=== PATIENT | male | born 1975 | race African-American/Black ===

== ENCOUNTER 2020-12-11 10:39 | Inpatient (IN) | payer MEDICAID, OTHER ==
[~2020-12-11] VITALS: Ht 167.6 cm; Wt 58.1 kg
[2020-12-11 12:01] LABS: CHLORIDE 102 mEq/L (98-107)
[2020-12-11 12:03] LABS: PROTHROMBIN TIME 10.5 sec (9.6-11.0)
[2020-12-11 12:26] LABS: BASOPHILS % 0.3 % (0.0-2.0); EOSINOPHILS % 1.4 % (0.0-5.0); HEMATOCRIT. 24.7 % (42.0-52.0); HEMOGLOBIN. 8.4 g/dL (14.0-18.0); LYMPHOCYTES % 11.2 % (20.0-50.0); MEAN CORPUSCULAR HEMOGLOBIN 32.1 pg (28.0-32.0); MEAN CORPUSCULAR VOLUME 93.8 fL (80.0-94.0); MEAN PLATELET VOLUME 7.9 fl (7.4-10.4); MONOCYTES % 5.8 % (2.0-8.0); NEUTROPHILS % 81.3 % (40.0-76.0); PLATELET 143 x1000/uL (130-400); RED BLOOD CELL COUNT 2.63 mill/uL (4.7-6.1); RED CELL DISTRIBUTION WIDTH 13.8 % (11.6-14.6)
[2020-12-11] MEDS ORDERED: VANCOMYCIN 1 G PREMIX 200 ML IV ONE (12:45)
[2020-12-11] MEDS ORDERED: PIPERACILLIN/TAZ 3.375G PREMIX 50 ML IV ONE (12:45)
[2020-12-11 16:32] VITALS: BP 152/103
[2020-12-11 16:54] VITALS: BP 152/103
[2020-12-11] MEDS ORDERED: DIPHENHYDRAMINE 50MG/ML VIAL IV PRN (17:00)
[2020-12-11] MEDS ORDERED: ACETAMINOPHEN 325MG TABLET PO PRN (17:00)
[2020-12-11] MEDS ORDERED: IPRATROPIUM/ALBUTEROL 0.5-3(2.5)MG/3ML NEB HHN PRN (17:00)
[2020-12-11] MEDS ORDERED: HYDR-4135 PO (18:55)
[2020-12-11] MEDS ORDERED: AMLO10TA80 PO (18:55)
[2020-12-11 20:00] VITALS: BP 154/104
[2020-12-11] MEDS ORDERED: FUROSEMIDE 40MG TABLET PO ONE (21:00)
[2020-12-11] MEDS ORDERED: EPOETIN ALFA-EPBX 4,000 UNIT/ML VIAL SUBCUT ONE (21:00)
[2020-12-11] MEDS: IRON SUCROSE COMPLEX 100 MG/5 ML ML IV SCH (21:23)
[2020-12-11] MEDS: PIPERACILLIN/TAZOBACTAM 3.375 G in DEXTROSE 5% WATER 50 ML IV SCH (21:23)
[2020-12-11] MEDS: HYDRALAZINE HCL 50MG TABLET PO SCH (21:24)
[2020-12-11] MEDS: CLONIDINE 0.1MG TABLET PO PRN (21:24)
[2020-12-11] MEDS: ZOLPIDEM TARTRATE 5MG TABLET PO PRN (21:24)
[2020-12-12] VITALS: BP 156/106
[2020-12-12 04:00] VITALS: BP 150/100
[2020-12-12] MEDS: CLONIDINE 0.1MG TABLET PO PRN ×2 (04:51→21:31)
[2020-12-12] MEDS: HYDRALAZINE HCL 50MG TABLET PO SCH ×3 (06:16→21:31)
[2020-12-12 08:00] VITALS: BP 162/92
[2020-12-12] MEDS ORDERED: LIDOCAINE HCL 1% 20ML VIAL (Pyxis) INJ ONE (08:24)
[2020-12-12 08:50] LABS: CLARITY URINE CLEAR (CLEAR); COLOR URINE YELLOW (YELLOW); KETONES URINE NEGATIVE (NEGATIVE); LEUKOCYTE ESTERASE URINE NEGATIVE (NEGATIVE); NITRITE URINE NEGATIVE (NEGATIVE); OCCULT BLOOD URINE TRACE (NEGATIVE); PH URINE 8.5 (4.5-8.0); PROTEIN URINE 3+ (NEGATIVE); SPECIFIC GRAVITY URINE 1.009 (1.005-1.030); UROBILINOGEN URINE 0.2 E.U./dL (0.2-1.0)
[2020-12-12] MEDS ORDERED: VANCOMYCIN 500 MG PREMIX 100 ML IV SCH (09:00)
[2020-12-12] MEDS: DOCUSATE SODIUM 100MG CAPSULE PO SCH ×2 (09:00→17:00)
[2020-12-12] MEDS: PIPERACILLIN/TAZOBACTAM 3.375 G in DEXTROSE 5% WATER 50 ML IV SCH ×2 (09:21→21:32)
[2020-12-12] MEDS: BENAZEPRIL 10MG TABLET PO SCH ×2 (09:22→17:22)
[2020-12-12] MEDS: CALCIUM ACETATE 667MG CAPSULE PO SCH ×3 (09:22→17:22)
[2020-12-12] MEDS: FUROSEMIDE 40MG TABLET PO SCH (09:22)
[2020-12-12] MEDS: SEVELAMER CARBONATE 800 MG TABLET PO SCH ×3 (09:24→17:22)
[2020-12-12 12:00] VITALS: BP 133/69
[2020-12-12] MEDS: ONDANSETRON HCL 4MG/2ML INJ IV PRN ×2 (13:28→18:49)
[2020-12-12 16:00] VITALS: BP 165/109
[2020-12-12] MEDS: MORPHINE SULFATE 2 MG/ML CPJ (NOT FOR IM USE) IV PRN (19:10)
[2020-12-12 20:00] VITALS: BP 166/110
[2020-12-12] MEDS: ZOLPIDEM TARTRATE 5MG TABLET PO PRN (21:31)
[2020-12-12] MEDS: IRON SUCROSE COMPLEX 100 MG/5 ML ML IV SCH (21:31)
[2020-12-13] VITALS (7 sets, daily range): BP systolic 167–200; BP diastolic 113–135
[2020-12-13] MEDS ORDERED: DIPHENOXYLATE/ATROPINE 2.5/0.025MG TABLET PO PRN (02:00)
[2020-12-13] MEDS ORDERED: CLONIDINE HCL 0.2MG/24HR PATCH TD SCH (03:00)
[2020-12-13] MEDS ORDERED: EPOETIN ALFA-EPBX 4,000 UNIT/ML VIAL SUBCUT NR ×2 (03:00→21:00)
[2020-12-13] MEDS: DEXTROSE 5% WATER 1,000 ML IV SCH (03:03)
[2020-12-13] MEDS: MORPHINE SULFATE 2 MG/ML CPJ (NOT FOR IM USE) IV PRN ×4 (03:23→18:14)
[2020-12-13] MEDS: ONDANSETRON HCL 4MG/2ML INJ IV PRN ×3 (03:23→17:13)
[2020-12-13] MEDS ORDERED: CLONIDINE HCL 0.3MG/24HR PATCH TD SCH (03:30)
[2020-12-13] MEDS: HYDRALAZINE HCL 50MG TABLET PO SCH ×3 (06:00→21:35)
[2020-12-13 06:44] LABS: HEMATOCRIT. 28.4 % (42.0-52.0); HEMOGLOBIN. 9.7 g/dL (14.0-18.0); MEAN CORPUSCULAR HEMOGLOBIN 31.5 pg (28.0-32.0); MEAN CORPUSCULAR VOLUME 92.4 fL (80.0-94.0); PLATELET 133 x1000/uL (130-400); RED BLOOD CELL COUNT 3.07 mill/uL (4.7-6.1); RED CELL DISTRIBUTION WIDTH 13.4 % (11.6-14.6)
[2020-12-13] MEDS ORDERED: HYDRALAZINE 20MG/ML VIAL IV SCH (08:00)
[2020-12-13 08:02] LABS: CHLORIDE 100 mEq/L (98-107)
[2020-12-13] MEDS: DOCUSATE SODIUM 100MG CAPSULE PO SCH ×2 (08:15→17:00)
[2020-12-13 08:18] LABS: LDL CHOLESTEROL 85 mg/dL (5-100)
[2020-12-13 08:21] LABS: HDL CHOLESTEROL 34 mg/dL (40-59)
[2020-12-13] MEDS: FUROSEMIDE 40MG TABLET PO SCH (08:44)
[2020-12-13] MEDS: BENAZEPRIL 10MG TABLET PO SCH ×2 (08:45→17:14)
[2020-12-13] MEDS: SEVELAMER CARBONATE 800 MG TABLET PO SCH ×3 (08:45→17:13)
[2020-12-13] MEDS: HYDRALAZINE 20MG/ML VIAL IV PRN ×3 (08:45→22:41)
[2020-12-13] MEDS: PIPERACILLIN/TAZOBACTAM 3.375 G in DEXTROSE 5% WATER 50 ML IV SCH ×2 (08:49→22:40)
[2020-12-13] MEDS: CALCIUM ACETATE 667MG CAPSULE PO SCH ×3 (08:49→17:14)
[2020-12-13] MEDS ORDERED: HEPARIN 1000 UNITS/ML 10ML ONE (10:06)
[2020-12-13] MEDS ORDERED: LABETALOL 5MG/ML SYR 20 MG/4 ML SYRINGE IV NR (16:40)
[2020-12-13] MEDS ORDERED: METOCLOPRAMIDE HCL 10MG/2ML VIAL IV NR (17:00)
[2020-12-13] MEDS ORDERED: ONDANSETRON HCL 4MG/2ML INJ IV PRN (17:00)
[2020-12-13] MEDS: IRON SUCROSE COMPLEX 100 MG/5 ML ML IV SCH (22:40)
[2020-12-14] VITALS (29 sets, daily range): BP systolic 110–194; BP diastolic 75–136
[2020-12-14 00:09] LABS: PROTHROMBIN TIME 10.4 sec (9.6-11.0)
[2020-12-14] MEDS: DEXTROSE 5% WATER 1,000 ML IV SCH ×2 (01:27→23:27)
[2020-12-14] MEDS: METOPROLOL TARTRATE 25MG TABLET PO SCH ×2 (02:43→21:09)
[2020-12-14] MEDS: ONDANSETRON HCL 4MG/2ML INJ IV PRN ×3 (02:43→21:12)
[2020-12-14] MEDS: MORPHINE SULFATE 2 MG/ML CPJ (NOT FOR IM USE) IV PRN ×2 (02:54→08:08)
[2020-12-14 04:25] LABS: PLATELET ESTIMATE NORMAL
[2020-12-14] MEDS: HYDRALAZINE HCL 50MG TABLET PO SCH ×3 (05:49→21:11)
[2020-12-14 07:35] LABS: HEMATOCRIT. 23.9 % (42.0-52.0); HEMOGLOBIN. 8.5 g/dL (14.0-18.0); MEAN CORPUSCULAR HEMOGLOBIN 33.1 pg (28.0-32.0); MEAN CORPUSCULAR VOLUME 93.4 fL (80.0-94.0); PLATELET 100 x1000/uL (130-400); RED BLOOD CELL COUNT 2.56 mill/uL (4.7-6.1); RED CELL DISTRIBUTION WIDTH 13.9 % (11.6-14.6)
[2020-12-14] MEDS: PIPERACILLIN/TAZOBACTAM 3.375 G in DEXTROSE 5% WATER 50 ML IV SCH (08:08)
[2020-12-14] MEDS: SEVELAMER CARBONATE 800 MG TABLET PO SCH ×3 (08:20→17:22)
[2020-12-14] MEDS: AMLODIPINE 10MG TABLET PO SCH (08:26)
[2020-12-14] MEDS: DOCUSATE SODIUM 100MG CAPSULE PO SCH ×2 (09:00→17:00)
[2020-12-14] MEDS: FUROSEMIDE 40MG TABLET PO SCH (09:00)
[2020-12-14] MEDS: CALCIUM ACETATE 667MG CAPSULE PO SCH ×3 (09:00→17:13)
[2020-12-14] MEDS: BENAZEPRIL 10MG TABLET PO SCH ×2 (10:01→17:13)
[2020-12-14] MEDS ORDERED: CEFEPIME 1,000 MG in DEXTROSE 5% WATER 50 ML IV SCH (10:30)
[2020-12-14] MEDS ORDERED: IOHEXOL-300 100 ML BOTTLE ONE (11:33)
[2020-12-14] MEDS: HYDRALAZINE 20MG/ML VIAL IV PRN (11:39)
[2020-12-14] MEDS: AZITHROMYCIN 500 MG TABLET PO SCH (14:33)
[2020-12-14 15:39] LABS: HEPATITIS B SURFACE ANTIGEN NEGATIVE
[2020-12-14] MEDS ORDERED: EPOETIN ALFA-EPBX 4,000 UNIT/ML VIAL SUBCUT NR (21:00)
[2020-12-14 21:08] LABS: PLATELET ESTIMATE DECREASED
[2020-12-14] MEDS: ZOLPIDEM TARTRATE 5MG TABLET PO PRN (21:11)
[2020-12-14] MEDS ORDERED: CEFEPIME 2,000 MG in DEXT 5% WATER 100 ML IV SCH (22:45)
[2020-12-15] VITALS: BP 145/106
[2020-12-15] MEDS: CEFEPIME 1,000 MG in DEXTROSE 5% WATER 50 ML IV SCH ×2 (01:03→21:00)
[2020-12-15 04:00] VITALS: BP_SYST 145; BP_SYST 85; BP_DIAS 85
[2020-12-15] MEDS: SEVELAMER CARBONATE 800 MG TABLET PO SCH ×3 (06:47→18:10)
[2020-12-15] MEDS: HYDRALAZINE HCL 50MG TABLET PO SCH ×3 (06:48→21:40)
[2020-12-15 07:48] LABS: HEMATOCRIT. 21.6 % (42.0-52.0); HEMOGLOBIN. 7.1 g/dL (14.0-18.0); MEAN CORPUSCULAR HEMOGLOBIN 30.7 pg (28.0-32.0); MEAN CORPUSCULAR VOLUME 93.2 fL (80.0-94.0); MEAN PLATELET VOLUME 8.9 fl (7.4-10.4); PLATELET 113 x1000/uL (130-400); RED BLOOD CELL COUNT 2.31 mill/uL (4.7-6.1); RED CELL DISTRIBUTION WIDTH 13.8 % (11.6-14.6)
[2020-12-15 08:00] VITALS: BP 143/98
[2020-12-15] MEDS: DOCUSATE SODIUM 100MG CAPSULE PO SCH ×2 (09:00→17:00)
[2020-12-15] MEDS: BENAZEPRIL 10MG TABLET PO SCH ×2 (09:22→18:10)
[2020-12-15] MEDS: AZITHROMYCIN 500 MG TABLET PO SCH (09:22)
[2020-12-15] MEDS: AMLODIPINE 10MG TABLET PO SCH (09:23)
[2020-12-15] MEDS: METOPROLOL TARTRATE 25MG TABLET PO SCH ×2 (09:23→21:40)
[2020-12-15] MEDS: FUROSEMIDE 40MG TABLET PO SCH (09:23)
[2020-12-15] MEDS: CALCIUM ACETATE 667MG CAPSULE PO SCH ×3 (09:23→18:10)
[2020-12-15 11:23] LABS: PLATELET ESTIMATE SLIGHTLY DECREASED
[2020-12-15 12:00] VITALS: BP 149/106
[2020-12-15 16:00] VITALS: BP 139/93
[2020-12-15] MEDS ORDERED: IRON SUCROSE COMPLEX 100 MG/5 ML ML IV SCH (17:00)
[2020-12-15 20:00] VITALS: BP 147/99
[2020-12-15] MEDS ORDERED: EPOETIN ALFA-EPBX 4,000 UNIT/ML VIAL SUBCUT NR (21:00)
[2020-12-15] MEDS: DEXTROSE 5% WATER 1,000 ML IV SCH (21:12)
[2020-12-16] VITALS: BP 154/104
[2020-12-16] MEDS: ZOLPIDEM TARTRATE 5MG TABLET PO PRN (00:36)
[2020-12-16] MEDS: HYDRALAZINE HCL 50MG TABLET PO SCH ×2 (06:47→13:21)
[2020-12-16 08:00] VITALS: BP 133/94
[2020-12-16] MEDS: DOCUSATE SODIUM 100MG CAPSULE PO SCH (09:00)
[2020-12-16] MEDS ORDERED: METOPROLOL TARTRATE 25MG TABLET PO SCH (09:00)
[2020-12-16] MEDS: AZITHROMYCIN 500 MG TABLET PO SCH (09:01)
[2020-12-16] MEDS: SEVELAMER CARBONATE 800 MG TABLET PO SCH ×2 (09:01→13:20)
[2020-12-16] MEDS: FUROSEMIDE 40MG TABLET PO SCH (09:01)
[2020-12-16] MEDS: BENAZEPRIL 10MG TABLET PO SCH (09:01)
[2020-12-16] MEDS: METOPROLOL TARTRATE 25MG TABLET PO SCH (09:01)
[2020-12-16] MEDS: CALCIUM ACETATE 667MG CAPSULE PO SCH ×2 (09:02→13:20)
[2020-12-16 09:46] LABS: HEMATOCRIT. 22.1 % (42.0-52.0); HEMOGLOBIN. 7.5 g/dL (14.0-18.0); MEAN CORPUSCULAR HEMOGLOBIN 31.3 pg (28.0-32.0); MEAN CORPUSCULAR VOLUME 92.3 fL (80.0-94.0); MEAN PLATELET VOLUME 8.5 fl (7.4-10.4); PLATELET 156 x1000/uL (130-400); RED BLOOD CELL COUNT 2.39 mill/uL (4.7-6.1); RED CELL DISTRIBUTION WIDTH 13.8 % (11.6-14.6)
[2020-12-16 12:00] VITALS: BP 138/95
[2020-12-16] MEDS ORDERED: LEVO500T89 MT (12:56)
[2020-12-16] MEDS ORDERED: FURO40TA5 PO (12:56)
[2020-12-16] MEDS ORDERED: HYDR-4135 PO (12:56)
[2020-12-16] MEDS ORDERED: METO25TA6 PO (12:56)
[2020-12-16] MEDS ORDERED: CLON1PAT12 TD (12:56)
[2020-12-16] MEDS ORDERED: CALC667C PO (12:56)
[2020-12-16] MEDS ORDERED: BENA10TA74 PO (12:56)
[2020-12-16] MEDS ORDERED: DOCU-150 PO (12:56)
[2020-12-16 15:45] VITALS: BP 138/95
[2020-12-16 16:47] LABS: PLATELET ESTIMATE NORMAL
== END 2020-12-16 16:20 | disposition home or self-care (01) | DRG 721 ==
LOC: ER 10:39 → 6WST 13:17 → ENRESERV 15:01 → CVICU 12-13 23:40 → 8WST 12-14 17:30
PROVIDERS: ADMIT Internal Medicine; ATTEND Internal Medicine
PROC: 0JPT3XZ Removal of Tunneled Vascular Access Device from Trunk Subcutaneous Tissue and Fascia, Percutaneous Approach (ICD-10-PCS; principal; 2020-12-12)
PROC: 02H633Z Insertion of Infusion Device into Right Atrium, Percutaneous Approach (ICD-10-PCS; 2020-12-13)
PROC: B548ZZA Ultrasonography of Superior Vena Cava, Guidance (ICD-10-PCS; 2020-12-13)
PROC: 5A1D70Z Performance of Urinary Filtration, Intermittent, Less than 6 Hours Per Day (ICD-10-PCS; 2020-12-14)
PROC: 5A1D70Z Performance of Urinary Filtration, Intermittent, Less than 6 Hours Per Day (ICD-10-PCS; 2020-12-16)
DX: T80.211A Bloodstream infection due to central venous catheter, initial encounter (principal); A41.9 Sepsis, unspecified organism; I12.0 Hypertensive chronic kidney disease with stage 5 chronic kidney disease or end stage renal disease; E46 Unspecified protein-calorie malnutrition; E83.51 Hypocalcemia; N18.6 End stage renal disease; D63.1 Anemia in chronic kidney disease; R18.8 Other ascites; K76.89 Other specified diseases of liver; F12.90 Cannabis use, unspecified, uncomplicated; F17.210 Nicotine dependence, cigarettes, uncomplicated; Y84.8 Other medical procedures as the cause of abnormal reaction of the patient, or of later complication, without mention of misadventure at the time of the procedure; I16.0 Hypertensive urgency; N27.1 Small kidney, bilateral; K52.9 Noninfective gastroenteritis and colitis, unspecified; K57.30 Diverticulosis of large intestine without perforation or abscess without bleeding; N28.1 Cyst of kidney, acquired; Z20.822 Contact with and (suspected) exposure to COVID-19; Y84.1 Kidney dialysis as the cause of abnormal reaction of the patient, or of later complication, without mention of misadventure at the time of the procedure; Z79.899 Other long term (current) drug therapy; Z91.14 Patient's other noncompliance with medication regimen; Z99.2 Dependence on renal dialysis; Y92.89 Other specified places as the place of occurrence of the external cause; Z68.20 Body mass index [BMI] 20.0-20.9, adult
CPT/HCPCS: 36415; 36589; 71045; 74176; 74177; 76937; 80048; 80053; 80061; 80202; 81003; 82150; 83605; 83615; 84145; 84443; 84484; 85025; 86705; 86709; 86803; 87015; 87045; 87070; 87077; 87186; 87340; 87426; 87427; 87449; 87493; 89055; 93005; 93970; 99291; C1752; J0360; J0692; J0885; J1200; J1644; J2270; J2405; J2543; J2765; J3370; J3490; J7040; J7060; J7070; Q9967

== ENCOUNTER 2020-12-19 11:31 | Emergency (ER) | payer OTHER ==
[~2020-12-19] VITALS: Ht 167.6 cm; Wt 59.0 kg
[~2020-12-19 11:31] MED LIST: BENA10TA74 PO; CALC667C PO; CLON1PAT12 TD; DOCU-150 PO; FURO40TA5 PO; HYDR-4135 PO; LEVO500T89 MT; METO25TA6 PO
[2020-12-19] MEDS ORDERED: MAGNESIUM/ALUMINUM HYDROXIDE/SIMETHICONE 30ML UDC PO STA (16:15)
[2020-12-19 16:41] LABS: CHLORIDE 97 mEq/L (98-107)
[2020-12-19 16:43] LABS: PROTHROMBIN TIME 10.6 sec (9.6-11.0)
[2020-12-19 16:49] LABS: BASOPHILS % 0.7 % (0.0-2.0); EOSINOPHILS % 3.2 % (0.0-5.0); HEMATOCRIT. 22.4 % (42.0-52.0); HEMOGLOBIN. 7.4 g/dL (14.0-18.0); LYMPHOCYTES % 8.5 % (20.0-50.0); MEAN CORPUSCULAR HEMOGLOBIN 31.2 pg (28.0-32.0); MEAN PLATELET VOLUME 7.9 fl (7.4-10.4); MONOCYTES % 2.7 % (2.0-8.0); NEUTROPHILS % 84.9 % (40.0-76.0); PLATELET 315 x1000/uL (130-400); RED BLOOD CELL COUNT 2.35 mill/uL (4.7-6.1); RED CELL DISTRIBUTION WIDTH 14.4 % (11.6-14.6)
[2020-12-19 17:14] LABS: CLARITY URINE CLEAR (CLEAR); COLOR URINE YELLOW (YELLOW); KETONES URINE NEGATIVE (NEGATIVE); LEUKOCYTE ESTERASE URINE TRACE (NEGATIVE); NITRITE URINE NEGATIVE (NEGATIVE); OCCULT BLOOD URINE NEGATIVE (NEGATIVE); PROTEIN URINE 3+ (NEGATIVE); SPECIFIC GRAVITY URINE 1.011 (1.005-1.030); UROBILINOGEN URINE 0.2 E.U./dL (0.2-1.0)
[2020-12-19 19:40] VITALS: BP 139/72
[2020-12-19] MEDS ORDERED: MORPHINE SULFATE 4 MG/ML CPJ (NOT FOR IM USE) IV ONE (20:15)
[2020-12-19] MEDS ORDERED: MAG-55 MT (20:59)
[2020-12-19] MEDS ORDERED: IOHEXOL-300 100 ML BOTTLE ONE (22:35)
== END 2020-12-19 21:05 | disposition left against medical advice (07) ==
LOC: ER 11:36
DX: R10.84 Generalized abdominal pain (principal); R11.10 Vomiting, unspecified; I12.0 Hypertensive chronic kidney disease with stage 5 chronic kidney disease or end stage renal disease; N18.6 End stage renal disease; Z99.2 Dependence on renal dialysis; Z79.899 Other long term (current) drug therapy
CPT/HCPCS: 36415; 80053; 81003; 83690; 85025; 85610; 93005; 99284; Q9967

== ENCOUNTER 2020-12-27 07:05 | Emergency (ER) | payer OTHER ==
[~2020-12-27] VITALS: Ht 167.6 cm; Wt 59.0 kg
[~2020-12-27 07:05] MED LIST changes: +MAG-55 MT
[2020-12-27 09:10] LABS: BASOPHILS % 0.9 % (0.0-2.0); EOSINOPHILS % 1.9 % (0.0-5.0); HEMATOCRIT. 23.9 % (42.0-52.0); HEMOGLOBIN. 8.2 g/dL (14.0-18.0); MEAN CORPUSCULAR HEMOGLOBIN 31.8 pg (28.0-32.0); MEAN CORPUSCULAR VOLUME 92.5 fL (80.0-94.0); MEAN PLATELET VOLUME 7.4 fl (7.4-10.4); MONOCYTES % 3.4 % (2.0-8.0); NEUTROPHILS % 85.8 % (40.0-76.0); PLATELET 423 x1000/uL (130-400); RED BLOOD CELL COUNT 2.58 mill/uL (4.7-6.1)
[2020-12-27 09:18] LABS: CHLORIDE 103 mEq/L (98-107)
[2020-12-27 09:22] LABS: PARTIAL THROMBOPLASTIN TIME 23.6 sec (23.4-31.0); PROTHROMBIN TIME 10.7 sec (9.6-11.0)
[2020-12-27 09:25] VITALS: BP 185/126
[2020-12-27] MEDS ORDERED: CLONIDINE 0.1MG TABLET PO ONE (09:30)
[2020-12-27] MEDS ORDERED: LIDOCAINE HCL 1% 20ML VIAL (Pyxis) INJ ONE (09:36)
[2020-12-27] MEDS ORDERED: BACITRACIN 15GM TUBE TOP ONE (09:36)
[2020-12-27] MEDS ORDERED: POLYMYXIN B SULFATE 500000 UNITS/VIAL ONE (09:36)
[2020-12-27] MEDS ORDERED: HEPARIN SODIUM 1,000 UNIT/1ML VIAL IV ONE (09:36)
[2020-12-27] MEDS ORDERED: BUPIVACAINE HCL/PF 0.5% (5MG/ML) 10ML ONE (09:36)
[2020-12-27] MEDS ORDERED: THROMBIN (BOVINE) 5000 UNITS/VIAL TOP ONE (09:37)
[2020-12-27] MEDS ORDERED: HYDRALAZINE 20MG/ML VIAL IV ONE (11:00)
[2020-12-27] MEDS ORDERED: ONDANSETRON HCL 4MG/2ML INJ IV PRN (11:00)
== END 2020-12-27 11:36 | disposition left against medical advice (07) ==
LOC: ER 07:05 → EDBEDREQTM 09:09 → EDBEDREQ 09:09 → CANBEDREQ 11:31 → ER 11:36
DX: Z46.82 Encounter for fitting and adjustment of non-vascular catheter (principal); D63.1 Anemia in chronic kidney disease; E87.8 Other disorders of electrolyte and fluid balance, not elsewhere classified; I12.0 Hypertensive chronic kidney disease with stage 5 chronic kidney disease or end stage renal disease; N18.6 End stage renal disease; Z99.2 Dependence on renal dialysis
CPT/HCPCS: 36415; 71045; 80053; 85025; 86850; 86900; 87426; 93005; 99285; J1644; J3490

== ENCOUNTER 2021-04-26 13:17 | Emergency (ER) | payer MEDICAID, OTHER ==
[~2021-04-26] VITALS: Ht 170.2 cm; Wt 59.0 kg
[~2021-04-26 13:17] MED LIST changes: +LACT1CAP78 MT; -LEVO500T89 MT; +OMEP40CA20 MT
[2021-04-26 13:32] VITALS: BP 127/83
== END 2021-04-26 23:38 | disposition left against medical advice (07) ==
LOC: ER 13:17 → CANBEDREQ 04-27 01:08
DX: R10.9 Unspecified abdominal pain (principal); Z53.21 Procedure and treatment not carried out due to patient leaving prior to being seen by health care provider
CPT/HCPCS: 71045; 74176; 99284

== ENCOUNTER 2022-03-05 12:39 | Inpatient (IN) | payer MEDICAID, OTHER ==
[~2022-03-05] VITALS: Ht 172.7 cm; Wt 60.9 kg
[~2022-03-05 12:39] MED LIST changes: +AMLO5TAB88 MT
[2022-03-05] MEDS ORDERED: FUROSEMIDE 100MG/10ML VIAL IVP NR (13:41)
[2022-03-05] MEDS ORDERED: FUROSEMIDE 100MG/10ML VIAL IVP ONE (13:45)
[2022-03-05] MEDS ORDERED: ACETAMINOPHEN WITH CODEINE 300/60MG TABLET PO ONE (14:30)
[2022-03-05 15:01] LABS: CHLORIDE 111 mEq/L (98-107)
[2022-03-05 15:06] LABS: BASOPHILS % 0.4 % (0.0-2.0); EOSINOPHILS % 1.3 % (0.0-5.0); HEMATOCRIT. 27.3 % (42.0-52.0); HEMOGLOBIN. 9.1 g/dL (14.0-18.0); LYMPHOCYTES % 9.2 % (20.0-50.0); MEAN CORPUSCULAR HEMOGLOBIN 30.9 pg (28.0-32.0); MEAN CORPUSCULAR VOLUME 93.2 fL (80.0-94.0); MEAN PLATELET VOLUME 8.2 fl (7.4-10.4); MONOCYTES % 3.5 % (2.0-8.0); NEUTROPHILS % 85.6 % (40.0-76.0); PLATELET 232 x1000/uL (130-400); RED BLOOD CELL COUNT 2.93 mill/uL (4.7-6.1); RED CELL DISTRIBUTION WIDTH 13.8 % (11.6-14.6)
[2022-03-05] MEDS ORDERED: CLONIDINE 0.1MG TABLET PO PRN ×2 (20:30→23:45)
[2022-03-05 22:00] VITALS: BP 163/124
[2022-03-05 22:21] VITALS: BP 163/124
[2022-03-05] MEDS ORDERED: ACETAMINOPHEN 325MG TABLET PO PRN (23:45)
[2022-03-05] MEDS ORDERED: ONDANSETRON HCL 4MG/2ML INJ IV PRN (23:45)
[2022-03-06] VITALS (12 sets, daily range): BP systolic 141–174; BP diastolic 89–122
[2022-03-06] MEDS ORDERED: FUROSEMIDE 40MG/4ML VIAL IVP NR (00:45)
[2022-03-06] MEDS: HYDRALAZINE HCL 100MG TABLET PO SCH ×3 (01:01→14:16)
[2022-03-06] MEDS ORDERED: HYDRALAZINE HCL 100MG TABLET PO SCH (06:00)
[2022-03-06] MEDS ORDERED: OMEPRAZOLE 20MG CAPSULE EXTENDED RELEASE PO SCH (06:50)
[2022-03-06 06:56] LABS: BASOPHILS % 0.5 % (0.0-2.0); EOSINOPHILS % 1.5 % (0.0-5.0); HEMATOCRIT. 28.5 % (42.0-52.0); HEMOGLOBIN. 9.5 g/dL (14.0-18.0); LYMPHOCYTES % 11.7 % (20.0-50.0); MEAN CORPUSCULAR HEMOGLOBIN 30.8 pg (28.0-32.0); MEAN PLATELET VOLUME 8.2 fl (7.4-10.4); MONOCYTES % 2.5 % (2.0-8.0); NEUTROPHILS % 83.8 % (40.0-76.0); PLATELET 219 x1000/uL (130-400); RED CELL DISTRIBUTION WIDTH 13.9 % (11.6-14.6)
[2022-03-06 08:06] LABS: CHLORIDE 102 mEq/L (98-107)
[2022-03-06 08:17] LABS: PHOSPHORUS 1.5 mg/dL (2.5-4.9)
[2022-03-06] MEDS ORDERED: AMLODIPINE 10MG TABLET PO SCH (09:00)
[2022-03-06] MEDS ORDERED: BENAZEPRIL 10MG TABLET PO SCH (09:00)
[2022-03-06] MEDS ORDERED: DOCUSATE SODIUM 100MG CAPSULE PO SCH (09:00)
[2022-03-06] MEDS ORDERED: FUROSEMIDE 40MG TABLET PO SCH ×2 (09:00)
[2022-03-06] MEDS ORDERED: METOPROLOL TARTRATE 25MG TABLET PO SCH (09:00)
[2022-03-06] MEDS: CALCIUM ACETATE 667MG CAPSULE PO SCH ×2 (09:07→12:53)
[2022-03-06] MEDS ORDERED: POTASSIUM CHLORIDE INJ 40 MEQ in DEXT 5% WATER 250 ML IV ONE (10:30)
[2022-03-06] MEDS ORDERED: KCL 20MEQ/100ML X 2 FOR TOTAL KCL 40MEQ/200ML IV SCH (10:31)
[2022-03-06] MEDS ORDERED: POTASSIUM CHLORIDE 20MEQ TABLET SR PO NR (14:00)
[2022-03-06 14:02] LABS: HEPATITIS B SURFACE ANTIGEN NEGATIVE
[2022-03-06] MEDS ORDERED: FUROSEMIDE 40MG/4ML VIAL IVP SCH (17:00)
== END 2022-03-06 15:33 | disposition home or self-care (01) | DRG 466 ==
LOC: ER 13:57 → 3WST 17:04
PROVIDERS: ADMIT Internal Medicine; ATTEND Internal Medicine
PROC: 5A1D70Z Performance of Urinary Filtration, Intermittent, Less than 6 Hours Per Day (ICD-10-PCS; principal; 2022-03-06)
DX: T82.41XA Breakdown (mechanical) of vascular dialysis catheter, initial encounter (principal); I12.0 Hypertensive chronic kidney disease with stage 5 chronic kidney disease or end stage renal disease; J96.00 Acute respiratory failure, unspecified whether with hypoxia or hypercapnia; N18.6 End stage renal disease; D63.1 Anemia in chronic kidney disease; E83.51 Hypocalcemia; J81.1 Chronic pulmonary edema; Z20.822 Contact with and (suspected) exposure to COVID-19; E87.70 Fluid overload, unspecified; I16.0 Hypertensive urgency; Z91.15 Patient's noncompliance with renal dialysis; Z99.2 Dependence on renal dialysis; Y84.6 Urinary catheterization as the cause of abnormal reaction of the patient, or of later complication, without mention of misadventure at the time of the procedure; Y92.89 Other specified places as the place of occurrence of the external cause
CPT/HCPCS: 36415; 71045; 80053; 84100; 85025; 86705; 86709; 86803; 87340; 87426; 87804; 90935; 99285; C9803; J1940